=== PATIENT | male | born 1985 | race Caucasian/White ===

== ENCOUNTER 2018-02-25 18:58 | Emergency (ER) | payer BC ==
[~2018-02-25] VITALS: Ht 182.9 cm; Wt 83.9 kg
[~2018-02-25 18:58] MED LIST: HYDACE5 PO; HYDACE5325 PO; IBUP600 PO; Naprosyn500 MG PO; PENVK500 PO; RXHYDACE PO; TRAM50 PO; Veetids 500500 MG PO
[2018-02-25] MEDS ORDERED: IBUP600 PO (20:33)
[2018-02-25] MEDS ORDERED: PENVK500 PO (20:33)
[2018-02-25] MEDS ORDERED: Norco 5-325 Ta1 EACH PO (20:33)
== END 2018-02-25 20:43 | disposition home or self-care (01) ==
LOC: ER 18:58
DX: K04.7 Periapical abscess without sinus (principal); K02.9 Dental caries, unspecified; F17.200 Nicotine dependence, unspecified, uncomplicated
CPT/HCPCS: 99283

== ENCOUNTER 2023-04-10 20:54 | Emergency (ER) | payer OTHER ==
[~2023-04-10] VITALS: Ht 182.9 cm; Wt 81.7 kg
[~2023-04-10 20:54] MED LIST changes: +Amoxicillin875 MG PO; +Norco 5-325 Ta1 EACH PO
[2023-04-10 21:38] VITALS: BP 139/92
== END 2023-04-11 00:51 | disposition home or self-care (01) ==
LOC: ER 20:54
DX: M25.532 Pain in left wrist (principal); M25.522 Pain in left elbow; F17.210 Nicotine dependence, cigarettes, uncomplicated; V28.09XA Other motorcycle driver injured in noncollision transport accident in nontraffic accident, initial encounter
CPT/HCPCS: 73080; 73110; 96372; 99284-25; J1885

== ENCOUNTER 2024-12-12 16:46 | Emergency (ER) | payer BC, OTHER ==
[~2024-12-12] VITALS: Ht 182.9 cm; Wt 95.2 kg
[2024-12-12 16:57] VITALS: BP 147/81
[2024-12-12] MEDS ORDERED: Ibuprofen 600 MG Tab PO ONE (18:45)
[2024-12-12] MEDS ORDERED: Acetaminophen 500 MG Tab PO ONE (18:45)
== END 2024-12-12 18:58 | disposition home or self-care (01) ==
LOC: ER 16:46
DX: S63.502A Unspecified sprain of left wrist, initial encounter (principal); F17.290 Nicotine dependence, other tobacco product, uncomplicated; W20.8XXA Other cause of strike by thrown, projected or falling object, initial encounter
CPT/HCPCS: 73110; 73130; 99283-25; A9270